=== PATIENT | male | born 1990 | race Caucasian/White ===

== ENCOUNTER 2017-08-07 12:16 | Emergency (ER) | payer MEDICAID, SELFPAY ==
[2017-08-07 12:32] VITALS: BP 142/98; PULSE 79; RESP 18; TEMP 36.6; O2SAT 98
--- NOTE | 2017-08-07 12:42 | CT_ITS ---
CT HEAD/BRAIN WO CON CLINICAL INDICATION: Headache, injury, contusion, laceration following trauma ITS.REASON: HIT IN HEAD WITH AX ORDERING PHYSICIAN: Jn Lynn MD PATIENT AGE: 27 years COMPARISON: None FINDINGS: No midline shift, mass effect, intracranial hemorrhage, or hydrocephalus is evident. No acute calvarial fracture. No intra or extra-axial hemorrhage. IMPRESSION: Negative CT head without contrast.
--- NOTE | 2017-08-07 12:42 | CT_ITS ---
CT FACIAL BONES WO CON CLINICAL INDICATION: Facial injury with pain, injury to the left nasal maxillary region. ITS.REASON: HIT IN HEAD WITH AX ORDERING PHYSICIAN: Jn Lynn MD PATIENT AGE: 27 years COMPARISON: None FINDINGS: No obvious fracture. No sinus air-fluid level. Mild mucosal thickening involves the right maxillary sinus superiorly. There is mild soft tissue swelling along the upper aspect of the nose and nasal maxillary junction. The orbits are unremarkable. IMPRESSION: Soft tissue swelling otherwise negative
--- NOTE | 2017-08-07 12:42 | CT_ITS ---
CT cervical spine wo con CLINICAL INDICATION: Neck pain following injury ITS.REASON: HIT IN HEAD WITH AX ORDERING PHYSICIAN: Jn Lynn MD PATIENT AGE: 27 years COMPARISON: None FINDINGS: Normal alignment. No fracture or dislocation. No prevertebral soft tissue swelling. No lytic or blastic change or significant degenerative change. The lung apices are clear. There is minimal cervical curvature convex left. IMPRESSION: No acute finding
--- NOTE | 2017-08-07 12:42 | HMH.EDWNDL ---
ED Disposition Clinical Impression: Facial laceration Qualifiers: Encounter type: initial encounter Qualified Code(s): S01.81XA - Laceration without foreign body of other part of head, initial encounter Disposition: Home, Self-Care Condition on Discharge: Good Instructions: DI for Closed Head Injury Additional Instructions: 1- hob 30 degree. 2- cold compreses 3- daily neosporin 4- 2 days wound recheck. 6- days stitiches removal. Prescriptions: cephALEXin [cephALEXin 500mg capsule] 500 mg PO QID #28 cap Referrals: Chandrakant Mcwilliams MD [Primary Care Provider] - - Critical Care Critical Care Time: No Attestation: On , the high probability of a clinically significant, sudden or life threatening deterioration of the following system(s) required my full and direct attention, intervention and personal management. The time I documented below is in addition to time spent performing reported procedures but includes the following listed in this critical care notation. Medical Decision Making Vital Signs: 08/07/17 12:32 Temperature 97.8 F Temperature Source Temporal Artery Scan Pulse Rate [Right Brachial] 79 Respiratory Rate 18 Blood Pressure [Right Arm] 142/98 Blood Pressure Source [Right Arm] Automatic Cuff Blood Pressure Position [Right Arm] Sitting 02 Sat by Pulse Oximetry 98 Oxygen Delivery Method Room Air - Will Inquiry Pt receiving controlled substance: No Will was queried for this patient: No Wound/Laceration HPI - General Chief Complaint: Head Injury Stated Complaint: [id number] home ao lac to lip Mode of Arrival: Ambulatory Source of Information: Patient, Spouse Limitations: No Limitations Description of Symptoms (Recalled from ER Triage Doc. by RN): LAC TO FACE. . - History of Present Illness Onset (ago): hour(s) Location: face Place: home Context: accidental Associated symptoms: pain, other (He saw stars, no loss of consciousness. No nausea no warm.) - Related Data Previous Rx's Medication Instructions Recorded cephALEXin [cephALEXin 500mg 500 mg PO QID #28 cap 08/07/17 capsule] Allergies Allergy/AdvReac Type Severity Reaction Status Date / Time No Known Allergies Allergy Unverified 07/24/17 15:16 [facility] History - *Social History Smoking Status: Current every day smoker Alcohol Intake: never - Psychiatric History Expresses thoughts of harming self/others: None Suicide Plan Description: No Plan ROS Obtained: Yes All systems reviewed & no additional complaints except as noted - ENT Reports other (Bleeding from the nose.) Physical Exam - General General appearance: alert, in no apparent distress - Head Head exam: normocephalic, other (Laceration at the base of the nasal septum more to the left, above his moustach. ) - Neck Neck exam: Present: normal inspection, full ROM, trachea midline - Chest Chest inspection: Present: normal inspection, symmetric chest wall rise. Absent: tenderness - Respiratory Respiratory exam: Present: normal lung sounds bilaterally. Absent: respiratory distress - Cardiovascular Cardiovascular exam: Present: regular rate, normal rhythm. Absent: JVD - Abdominal Exam Abdominal exam: Present: soft, normal bowel sounds. Absent: distention, tenderness, guarding - Neurological Exam Neurological exam: Present: alert, oriented X3 - Psychiatric Psychiatric exam: Present: normal affect (2 cm irregular skin laceration at the base of the left nasal septum.), normal mood Procedures - Laceration Laceration 1 Site: face Side (If applicable): left Description: irregular Depth: simple, single layer Local Anesthetic: lidocaine 2% Pre-repair: wound explored Skin layer closed with: nylon Size (cm): 4-0 Technique: simple, interrupted Size: 4-0 - Foreign Body Removal Time Out Performed: No
--- NOTE | 2017-08-07 12:45 | ED_ITS ---
ED Disposition Clinical Impression: Facial laceration Qualifiers: Encounter type: initial encounter Qualified Code(s): S01.81XA - Laceration without foreign body of other part of head, initial encounter Disposition: Home, Self-Care Condition on Discharge: Good Instructions: DI for Closed Head Injury Additional Instructions: 1- hob 30 degree. 2- cold compreses 3- daily neosporin 4- 2 days wound recheck. 6- days stitiches removal. Prescriptions: cephALEXin [cephALEXin 500mg capsule] 500 mg PO QID #28 cap Referrals: Chandrakant Mcwilliams MD [Primary Care Provider] - - Critical Care Critical Care Time: No Attestation: On , the high probability of a clinically significant, sudden or life threatening deterioration of the following system(s) required my full and direct attention, intervention and personal management. The time I documented below is in addition to time spent performing reported procedures but includes the following listed in this critical care notation. Medical Decision Making Vital Signs: 08/07/17 12:32 Temperature 97.8 F Temperature Source Temporal Artery Scan Pulse Rate [Right Brachial] 79 Respiratory Rate 18 Blood Pressure [Right Arm] 142/98 Blood Pressure Source [Right Arm] Automatic Cuff Blood Pressure Position [Right Arm] Sitting 02 Sat by Pulse Oximetry 98 Oxygen Delivery Method Room Air - Will Inquiry Pt receiving controlled substance: No Will was queried for this patient: No Wound/Laceration HPI - General Chief Complaint: Head Injury Stated Complaint: [id number] home ao lac to lip Mode of Arrival: Ambulatory Source of Information: Patient, Spouse Limitations: No Limitations Description of Symptoms (Recalled from ER Triage Doc. by RN): LAC TO FACE. . - History of Present Illness Onset (ago): hour(s) Location: face Place: home Context: accidental Associated symptoms: pain, other (He saw stars, no loss of consciousness. No nausea no warm.) - Related Data Previous Rx's Medication Instructions Recorded cephALEXin [cephALEXin 500mg 500 mg PO QID #28 cap 08/07/17 capsule] Allergies Allergy/AdvReac Type Severity Reaction Status Date / Time No Known Allergies Allergy Unverified 07/24/17 15:16 [facility] History - *Social History Smoking Status: Current every day smoker Alcohol Intake: never - Psychiatric History Expresses thoughts of harming self/others: None Suicide Plan Description: No Plan ROS Obtained: Yes All systems reviewed & no additional complaints except as noted - ENT Reports other (Bleeding from the nose.) Physical Exam - General General appearance: alert, in no apparent distress - Head Head exam: normocephalic, other (Laceration at the base of the nasal septum more to the left, above his moustach. ) - Neck Neck exam: Present: normal inspection, full ROM, trachea midline - Chest Chest inspection: Present: normal inspection, symmetric chest wall rise. Absent : tenderness - Respiratory Respiratory exam: Present: normal lung sounds bilaterally. Absent: respiratory distress - Cardiovascular Cardiovascular exam: Present: regular rate, normal rhythm. Absent: JVD - Abdominal Exam Abdominal exam: Present: soft, normal bowel sounds. Absent: distention, tende
[2017-08-07 14:28] VITALS: BP 121/80; PULSE 78; RESP 16; TEMP 36.6; O2SAT 98
== END 2017-08-07 14:37 | disposition home or self-care (01) ==
PROVIDERS: Emergency Provider Emergency Medicine; Family Provider Internal Medicine Adolescent Medicine; PCP Family Medicine
DX: S01.81XA Laceration without foreign body of other part of head, initial encounter (principal); W22.8XXA Striking against or struck by other objects, initial encounter; Y92.019 Unspecified place in single-family (private) house as the place of occurrence of the external cause
CPT/HCPCS: 12011; 70450; 70486; 72125; 99282

== ENCOUNTER 2020-05-22 10:57 | Emergency (ER) | payer OTHER, SELFPAY ==
[2020-05-22 11:09] VITALS: BP 132/76; PULSE 108; RESP 20; TEMP 36.7; O2SAT 100; BMI 21.3
--- NOTE | 2020-05-22 11:18 | HMH.EDUTC ---
[facility] [place] Clinical Impression: Bronchitis Sinusitis Qualifiers: Sinusitis location: unspecified location Chronicity: unspecified Qualified Code(s): J32.9 - Chronic sinusitis, unspecified Disposition: Home, Self-Care Condition on Discharge: Good Instructions: Sinusitis, Sinus Headache, DI for Sinusitis, Acute Bronchitis Additional Instructions: ? Start antibiotic today. Be sure to complete entire prescription even if feeling better ? Monitor temp. Tylenol every 4 hours as needed and / or ibuprofen every 6 hours as needed ( As long as your primary care physician has told you that it ok to take both. For fever/aches/pains ER if no less than 101 despite Tylenol or Motrin ? Humidifier/vaporizer or hot steamy shower ? Inhaler every 4-6 hours as needed like we discussed. If unsure how to use it, ask pharmacist to demonstrate how. Should help open airways and improve cough, wheezing, and shortness of breath ? Mucinex during the day for your cough and cough suppressant only at night. Be sure to drink lots of water. Insurance may not cover a prescriptions for mucinex. Might be cheaper to get 400mg tablets and take 2 tablet in the morning, mid-day and evening with lots of water. *Start steroid today. Helps with inflammation therefore, cough and wheezing. Follow directions on the package. Reviewed side effects. Patient reports taking them before. Follow up IMMEDIATELY for new or worsening of symptoms OR no noticeable improvement over the next 48-72 hours. 911 immediately for any life threatening symptoms such as chest pain or difficulty breathing You was tested for today for COVID19 your test result should be back in the next 48 hours, you may call back on Sunday to see if your test results are back and the result You was given a handout with instructions for Self Quarantine and Self isolation for while you wait on test results and what to do if they are positive Prescriptions: Albuterol Sulfate [Proventil-HFA 90mcg/puff Inh] 1 - 2 puffs IH Q4HP PRN #1 inh PRN Reason: Shortness Of Breath Transmission Status: Pending to [facility] # predniSONE [Deltasone 10mg tablet] 10 mg PO BID 5 Days #10 tab Transmission Status: Pending to [facility] # guaiFENesin [Mucinex 600mg tablet] 1 tab PO Q12H PRN #10 tab.er.12h PRN Reason: Congestion Transmission Status: Pending to [facility] # Azithromycin [Z-Isaias 250mg Tab] 250 mg PO DIRECTED #6 tab Transmission Status: Pending to [facility] # Referrals: Antwan Graff MD [Primary Care Provider] - As needed Forms: Work/School Release Time of Disposition: 11:25 Medical Decision Making - Will Inquiry Pt receiving controlled substance: No Will was queried for this patient: No Vital Signs: 05/22/20 11:09 Temperature 98.1 F Temperature Source Oral Pulse Rate [Radial] 108 H Respiratory Rate 20 Blood Pressure [Right Arm] 132/76 Blood Pressure Mean [Right Arm] 94 Blood Pressure Source [Right Arm] Automatic Cuff Blood Pressure Position [Right Arm] Sitting 02 Sat by Pulse Oximetry 100 Oxygen Delivery Method Room Air Orders (Tests/Meds): ORDERS Category Date Time Status Covid-19 Nasal PCR Sendout Stat Lab 05/22/20 11:10 Received Medical Decision Narrative: Discussed CXR with patient and he declined at this time [facility] [place] HPI - General Stated complaint: exposed want covid test Time Seen by Provider: 05/22/20 11:18 Mode of Arrival: Ambulatory Source of Information: Patient Limitations: No Limitations Description of Symptoms (Recalled from Triage Doc. by RN): wants covid test, exposed yesterday HEENT Symptoms (Recalled from RN notes): Yes Resp Symptoms (Recalled from RN notes): No Skin Symptoms (Recalled from RN notes): No MS Symptoms (Recalled from RN notes): No Functional Status (Recalled from RN notes): wnl - History of Present Illness Provider Complaint: Patient states that he has been having s
[2020-05-22 11:43] VITALS: BP 132/76; PULSE 108; RESP 20; TEMP 36.7; O2SAT 100
[2020-05-23 08:27] LABS: Covid-19 Nasal PCR Sendout UK Not Detected
== END 2020-05-22 11:44 | disposition home or self-care (01) ==
PROVIDERS: Emergency Provider Nurse Practitioner; PCP Emergency Medicine
DX: Z20.828 Contact with and (suspected) exposure to other viral communicable diseases (principal); J32.9 Chronic sinusitis, unspecified; J20.9 Acute bronchitis, unspecified; F17.210 Nicotine dependence, cigarettes, uncomplicated
CPT/HCPCS: 99201; U0003

== ENCOUNTER 2020-12-14 03:39 | Observation (INO) | payer OTHER, SELFPAY ==
[2020-12-14] VITALS (25 sets, daily range): BP systolic 113–153; BP diastolic 42–97; PULSE 76–104; RESP 12–20; TEMP 36.6–43; O2SAT 95–100; BMI 23.1; BMI 22.0
--- NOTE | 2020-12-14 03:55 | CT_ITS ---
PROCEDURE INFORMATION: Exam: CT Right Upper Extremity With Contrast, Hand Exam date and time: 12/14/2020 3:55 AM Age: 30 years old Clinical indication: Injury or trauma; Other: Possible thorn in 2nd finger; Puncture; Right; Injury date: 12/08/2020; Injury details: PT working on a fence and thinks a thorn went into RT index finger; Patient HX: Infection, swelling and redness RT index finger possible thorn in finger? TECHNIQUE: Imaging protocol: CT of the Right upper extremity with intravenous contrast was performed. Exam focused on the hand. 3D rendering (Not supervised by radiologist): MIP and/or 3D reconstructed images were created by the technologist. Radiation optimization: All CT scans at this facility use at least one of these dose optimization techniques: automated exposure control; mA and/or kV adjustment per patient size (includes targeted exams where dose is matched to clinical indication); or iterative reconstruction. Contrast material: ISOVUE; Contrast volume: 75 ml; Contrast route: IV; COMPARISON: No relevant prior studies available. FINDINGS: Bones/joints: No osteomyelitis is noted. Soft tissues: There is diffuse edema seen throughout the index finger. No obvious radiopaque foreign body is seen. No focal fluid collections are seen the edema is most prominent adjacent to the proximal phalanx. IMPRESSION: Diffuse soft tissue edema in the proximal portion of the index finger, this may represent cellulitis. No definite foreign body identified. No abscess noted.
[2020-12-14 04:13] LABS: Basophils # 0.1 K/mm3 (0-0.2); Basophils % 0.6 % (0.1-2.0); Eosinophils # 0.3 K/mm3 (0.0-0.4); Eosinophils % 2.6 % (0.1-12.0); Hematocrit 50.5 % (42.0-52.0); Hemoglobin 16.3 g/dL (14.1-18.0); Lymphocytes % 8.8 % (10-50); Mean Corpuscular HGB Conc 32.3 g/dL (31.8-35.4); Mean Corpuscular Hemoglobin 31.7 pg (27.0-31.2); Mean Corpuscular Volume 98.3 fl (80-94); Mean Platelet Volume 7.7 fl (7.4-10.4); Monocytes # 0.4 K/mm3 (0.1-1.0); Monocytes % 3.6 % (1.7-9.3); Neutrophils # 9.8 K/mm3 (1.8-7.8); Neutrophils % 84.4 % (37.0-80.0); Platelet Count 186 K/mm3 (142-424); Red Blood Count 5.14 M/mm3 (4.60-6.20); Red Cell Distribution Width 12.8 % (11.5-17.5); White Blood Count 11.6 K/mm3 (4.8-10.8)
[2020-12-14 04:21] LABS: Alanine Aminotransferase 15 U/L (12-78); Albumin Level 3.9 g/dl (3.5-5.0); Albumin/Globulin Ratio 1.6 (1.1-1.8); Alkaline Phosphatase 94 U/L (38-126); Anion Gap 9.1 mEq/L (5-15); Aspartate Amino Transferase 30 U/L (17-59); Bilirubin,Total 0.2 mg/dl (0.2-1.3); Blood Urea Nitrogen 8 mg/dl (9-20); Calcium 8.5 mg/dl (8.4-10.2); Carbon Dioxide 25 mmol/L (22.0-30.0); Chloride 108 mmol/L (98-107); Estimated Glomerular Filt Rate 87 ml/min (>60); GFR (African American) 105 ML/MIN (>60); Globulin 2.5 g/dL (1.3-3.2); Glucose 111 mg/dl (74-100); Potassium 4.1 mmoL/L (3.5-5.1); Sodium 138 mmol/L (136-145); Total Protein,Serum 6.4 g/dl (6.3-8.2)
[2020-12-14 04:26] LABS: C-Reactive Protein 13.5 mg/L (0-4)
[2020-12-14 04:38] LABS: Erythrocyte Sedimentation Rate 1 mm/hr (0-15)
[2020-12-14 04:44] LABS: Lactic Acid 1.2 mmol/L (0.7-2.1)
--- NOTE | 2020-12-14 05:54 | HMH.EDSKAF ---
ED Disposition Clinical Impression: Infection of flexor tendon sheath, SIRS (systemic inflammatory response syndrome) Disposition: Admitted As Inpatient Condition on Discharge: Serious Referrals: Antwan Graff MD [Primary Care Provider] - - Critical Care Critical Care Time: No Attestation: On 12/14/20, the high probability of a clinically significant, sudden or life threatening deterioration of the following system(s) required my full and direct attention, intervention and personal management. The time I documented below is in addition to time spent performing reported procedures but includes the following listed in this critical care notation. Medical Decision Making - Medical Records Medical records reviewed: Yes: I reviewed the patient's medical records. - Will Inquiry Pt receiving controlled substance: No Vital Signs: 12/14/20 03:55 Temperature 98.4 F Temperature Source Oral Pulse Rate [Left] 104 H Respiratory Rate 20 Blood Pressure [Right Arm] 143/78 H Blood Pressure Mean [Right Arm] 99 Blood Pressure Source [Right Arm] Automatic Cuff 02 Sat by Pulse Oximetry 100 Oxygen Delivery Method Room Air - Lab Data Lab results reviewed: Yes: I reviewed the patient's lab results. Lab Results 12/14/20 04:00: WBC 11.6 H, RBC 5.14, Hgb 16.3, Hct 50.5, MCV 98.3 H, MCH 31.7 H, MCHC 32.3, RDW 12.8, Plt Count 186, MPV 7.7, Neut % (Auto) 84.4 H, Lymph % (Auto) 8.8 L, Bee % (Auto) 3.6, Eos % (Auto) 2.6, Baso % (Auto) 0.6, Neut # (Auto) 9.8 H, Lymph # (Auto) 1.0, Bee # (Auto) 0.4, Eos # (Auto) 0.3, Baso # (Auto) 0.1, ESR 1 12/14/20 04:00: Sodium 138, Potassium 4.1, Chloride 108 H, Carbon Dioxide 25, Anion Gap 9.1, BUN 8 L, Creatinine 1.00, Estimated GFR 87, Est GFR ( Amer) 105, Glucose 111 H, Calcium 8.5, Total Bilirubin 0.2, AST 30, ALT 15, Alkaline Phosphatase 94, C-Reactive Protein 13.5 H, Total Protein 6.4, Albumin 3.9, Globulin 2.5, Albumin/Globulin Ratio 1.6 12/14/20 04:00: Procalcitonin 0.060 12/14/20 04:00: Lactate 1.2 Result diagrams: 12/14/20 04:00 12/14/20 04:00 Orders (Tests/Meds): ED MEDICATIONS Generic Name Dose Route Start Last Admin Trade Name Freq PRN Reason Stop Dose Admin Sodium Chloride 1,000 mls @ 999 mls/hr 12/14/20 04:30 12/14/20 04:32 Sod Chlor 0.9% 1000ml Bag IV 12/14/20 05:30 999 mls/hr .Q1H1M ISSA Administration Miscellaneous 1 each 12/14/20 06:15 Vancomycin Consult Request * 01/13/21 06:14 CONSULT PHARMACY ISSA Discontinued Medications Generic Name Dose Route Start Last Admin Trade Name Freq PRN Reason Stop Dose Admin Ketorolac Tromethamine 30 mg 12/14/20 04:26 12/14/20 04:32 Ketorolac 30mg/Ml Vial IV 12/14/20 04:27 30 mg ONCE ONE Administration Methylprednisolone Sodium Succinate 125 mg 12/14/20 04:26 12/14/20 04:32 Methylprednisolone Sod Succ 125mg Vial IV 12/14/20 04:27 125 mg ONCE ONE Administration ORDERS Category Date Time Status Full Resp Panel w/COVID ([facility]) Routine Lab 12/14/20 06:05 Ordered Urinalysis and Microscopic Stat Lab 12/14/20 04:26 Ordered Blood Culture Stat Micro 12/14/20 04:00 Received Wound Culture and Gram Stain Stat Micro 12/14/20 04:26 Ordered - CT Data CT Scan: Other (hand) Time Received: 05:[address] Reviewed: Yes: I have viewed the radiologist's interpretation Preliminary Findings: Abnormal (no abscess) - Physician Consults Physician Consulted: krishna Reason -: Pt condition Medical Decision Narrative: has rt index finger flexor tendon sheath infection Skin/Abscess/FB HPI - General Chief complaint: Wound/Laceration Stated complaint: infected right hand Time Seen by Provider: 12/14/20 04:15 Mode of Arrival: Ambulatory Source of Information: Patient, Significant Other, Medical Record Limitations: No Limitations Description of Symptoms (Recalled from ER Triage Doc. by RN): pt c/o right hand pain, swelling, and decreased ROM to pointer finger. He states 4 da
[2020-12-14 06:25] LABS: Adenovirus,PCR Not Detected (NotDetected); Bordetella Pertussis Not Detected (NotDetected); Chlamydophila Pneumoniae, PCR Not Detected (NotDetected); Coronavirus 19, PCR Not Detected (NotDetected); Coronavirus 229E Not Detected (NotDetected); Coronavirus NL63 Not Detected (NotDetected); Coronavirus OC43 Not Detected (NotDetected); Coronovirus HKU1,PCR Not Detected (NotDetected); Human Metapneumovirus Not Detected (NotDetected); Influenza A, PCR Not Detected (NotDetected); Influenza AH1, 2009 Not Detected (NotDetected); Influenza AH1, PCR Not Detected (NotDetected); Influenza AH3,PCR Not Detected (NotDetected); Influenza B, PCR Not Detected (NotDetected); Mycoplasma Pneumoniae, PCR Not Detected (NotDetected); Parainfluenza 1, PCR Not Detected (NotDetected); Parainfluenza 2, PCR Not Detected (NotDetected); Parainfluenza 3, PCR Not Detected (NotDetected); Parainfluenza 4, PCR Not Detected (NotDetected); Respiratory Syncytial Virus Not Detected (NotDetected); Rhinovirus/Enterovirus Not Detected (NotDetected)
--- NOTE | 2020-12-14 07:35 | HMH.PHAVTE ---
[facility] Pharmacy VTE Monitoring - Patient Demographics Admission date: 12/14/20 Report Date: 12/14/20 Time: 07:35 Allergies/Adverse Reactions: Patient Allergies No Known Allergies Allergy (Unverified 07/24/17 15:16) Height: 1.85 m Weight: 79.379 kg Patient Problems: Current Active Problems Infection of flexor tendon sheath (Acute) SIRS (systemic inflammatory response syndrome) (Acute) - VTE Risk Labs: VTE Related Lab Results Hgb 16.3 g/dL (14.1-18.0) 12/14/20 04:00 Hct 50.5 % (42.0-52.0) 12/14/20 04:00 Plt Count 186 K/mm3 (142-424) 12/14/20 04:00 BUN 8 mg/dl (9-20) L 12/14/20 04:00 Creatinine 1.00 mg/dl (0.66-1.25) 12/14/20 04:00 - Prophylaxis VTE Prophylaxis Ordered?: Yes Types of VTE Prophylaxis: TEDS Knee High Location of Applied Device: Bilateral Lower Extremeties
--- NOTE | 2020-12-14 07:37 | PC.NURSE ---
Dr. Lake at BS
--- NOTE | 2020-12-14 07:37 | PC.NURSE ---
Dr. miranda states she will take pt to surgery toda
--- NOTE | 2020-12-14 08:09 | P.CONPHA_ITS ---
- Pharmacy Consult Date: 12/14/20 Time: 08:09 Referring provider: DR. MILLER Reason for Consult:: VANCOMYCIN DOSING Allergies and ADEs:: Allergies Allergy/AdvReac Type Severity Reaction Status Date / Time No Known Allergies Allergy Unverified 07/24/17 15:16 Home Medications:: Home Medications Medication Instructions Recorded Confirmed Type No Known Home Medications 12/14/20 12/14/20 History Height: 1.85 m Weight: 79.379 kg Laboratory Results:: Laboratory Results - last 24 hr 12/14/20 04:00: WBC 11.6 H, RBC 5.14, Hgb 16.3, Hct 50.5, MCV 98.3 H, MCH 31.7 H , MCHC 32.3, RDW 12.8, Plt Count 186, MPV 7.7, Neut % (Auto) 84.4 H, Lymph % (Auto) 8.8 L, Schuyler % (Auto) 3.6, Eos % (Auto) 2.6, Baso % (Auto) 0.6, Neut # (Auto) 9.8 H, Lymph # (Auto) 1.0, Schuyler # (Auto) 0.4, Eos # (Auto) 0.3, Baso # (Auto) 0.1, ESR 1 12/14/20 04:00: Sodium 138, Potassium 4.1, Chloride 108 H, Carbon Dioxide 25, Anion Gap 9.1, BUN 8 L, Creatinine 1.00, Estimated GFR 87, Est GFR ( Amer) 105, Glucose 111 H, Calcium 8.5, Total Bilirubin 0.2, AST 30, ALT 15, Alkaline Phosphatase 94, C-Reactive Protein 13.5 H, Total Protein 6.4, Albumin 3.9, Globulin 2.5, Albumin/Globulin Ratio 1.6 12/14/20 04:00: Procalcitonin 0.060 12/14/20 04:00: Lactate 1.2 12/14/20 06:20: Chlamy pneumoniae PCR Not detected, Adenovirus (PCR) Not detected, B. pertussis DNA (PCR) Not detected, Coronavirus OC43 (PCR) Not detected, Coronavirus HKU1 (PCR) Not detected, Coronavirus 229E (PCR) Not detected, SARS-CoV-2 (PCR) Not detected, Coronavirus NL63 (PCR) Not detected, Human Metapneumovir PCR Not detected, Influenza A (H1) PCR Not detected, Influ A (H1N1/09) PCR Not detected, Influenza A (H3) PCR Not detected, Influenza Type A (PCR) Not detected, Influenza Type B (PCR) Not detected, M. pneumoniae (PCR) Not detected, Parainfluenza 1 (PCR) Not detected, Parainfluenza 2 (PCR) Not detected, Parainfluenza 3 (PCR) Not detected, Parainfluenza 4 (PCR) Not detected, RSV (PCR) Not detected, Entero/Rhino (PCR) Not detected Medical History: Denies:: Cancer, Diabetes Mellitus Type 1, Diabetes Mellitus Type 2 Assessment and Plan - Assessment and plan all Dx Assessment and Plan for all problems:: Age: 30 yo Serum creatinine: 1 mg/dL Height: 73.0 Inches Weight (kg): 79.4 Assessment: IBW (kg): 79.90 Dosing wt(kg): 79.4 Estimated Creatinine clearance (ml/min): 119.1 CRCL method: Cockcroft and Gault using ibw(default). Drug selected: Vancomycin Loading dose (mg): 0 Vd (liters): 63.5 (factor used: 0.8 L/kg) Sukhjinder (hr-1): 0.103 Half life (hrs): 6.73 Recommended dose: 1750 mg Interval: 12 hrs Infusion time (hrs): 2.0 Predicted peak (mcg/mL): 35.1 Predicted trough (mcg/mL): 12.53 Total body weight is being used for vancomycin dosing. Recommendations: Give Vancomycin 1750 mg q 12 hrs with an expected Cpeak of 35.1 mcg/ml and an expected Ctrough of 12.53 mcg/ml
--- NOTE | 2020-12-14 08:42 | PC.NURSE ---
Surgery packet completed at this time. Consent signed by patient. All clothing besides boxers removed at this time also.
--- NOTE | 2020-12-14 10:21 | PC.NURSE ---
report called to kumar garcia on second floor at this time, states she will send staff down to get pt.
--- NOTE | 2020-12-14 10:21 | PC.NURSE ---
RECIEVED REPORT FROM SHADY JOLLY RN @ [phone].
--- NOTE | 2020-12-14 10:41 | PC.NURSE ---
Pt arrived to the floor at this time
[2020-12-14 11:40] LABS: Microscopic, Urine URINE MICROSCOPIC (MICROSCOPIC)
[2020-12-14 11:42] LABS: Appearance,Urine CLEAR (Clear); Bilirubin,Urine Negative (Negative); Blood, Urine Negative (Negative); Color,Urine YELLOW (Yellow); Glucose,Urine (UA) 1+ (Negative); Ketones,Urine Negative (Negative); Leukocyte Esterase,Urine Negative (Negative); Nitrate,Urine Negative (Negative); PH,Urine 6.5 (5.0-8.5); Protein,Urine Negative (Negative); Urobilinogen,Urine 0.2 EU/dl (0.2)
--- NOTE | 2020-12-14 11:42 | PC.NURSE ---
UNABLE TO OBTAIN WOUND CULTURE. WOUND IS NOT DRAINING, NOR OPEN TO CULTURE WOUND.
--- NOTE | 2020-12-14 12:14 | HMH.ORTHOCON ---
*Admission Date: 12/14/20 *Reason for consult:: R hand infection *History of present illness: 30-year-old gentleman presented to the emergency department this morning for increasing pain and swelling in the right hand. 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 It left a fairly large cut, which he cleansed and covered with skin glue to seal it. He did this because he was about to go fishing and wanted to seal the wound and protect it from the water. 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 Throughout that time he had some swelling and pain but not yet severe. No fevers have been reported. Over the last 24 hours it has dramatically increased in size and has become pink and warm. Motion in the index finger is decreased and hurts with any movement. He has been taking Motrin without relief. No numbness or tingling in the finger. He denies any chronic medical issues or any prescription medications, no known drug allergies. He is a smoker and smokes roughly 1 pack/day; denies illicit drug use or excessive alcohol consumption. He is right-hand dominant. Employed by a local [email or web address] [facility] History I have reviewed the patient's past medical history: Yes Medical History: Denies:: Cancer, Diabetes Mellitus Type 1, Diabetes Mellitus Type 2 *Have you ever received a pneumonia vaccine?: No *Have you received a flu vaccine this season?: No - *Social History Last grade of school completed: 9th or 10th Smoking Status: Current every day smoker Tobacco Type: cigarettes # Packs/Day (cigarettes): 1 Alcohol Intake: never Alcohol Intake Frequency:: a few times a week *Occupational Status:: employed Housing: house Household Members: significant other *Travel in the last 8 weeks: None Family Hx:: No significant family history Review of Systems - Review of Systems Review of systems:: pertinent systems reviewed and negative unless documented below - *Neurologic Denies seizure-like activity Meds Home Medications Medication Instructions Recorded Confirmed Type No Known Home Medications 12/14/20 12/14/20 History Allergies Allergy/AdvReac Type Severity Reaction Status Date / Time No Known Allergies Allergy Unverified 07/24/17 15:16 Exam Vital signs and Labs for Last 24 Hours: Temp Pulse Resp BP Pulse Ox 98.2 F 77 16 122/77 98 12/14/20 11:12 12/14/20 11:12 12/14/20 11:55 12/14/20 11:12 12/14/20 11:12 Laboratory Results - last 24 hr 12/14/20 04:00: WBC 11.6 H, RBC 5.14, Hgb 16.3, Hct 50.5, MCV 98.3 H, MCH 31.7 H, MCHC 32.3, RDW 12.8, Plt Count 186, MPV 7.7, Neut % (Auto) 84.4 H, Lymph % (Auto) 8.8 L, Grayson % (Auto) 3.6, Eos % (Auto) 2.6, Baso % (Auto) 0.6, Neut # (Auto) 9.8 H, Lymph # (Auto) 1.0, Gr[place] # (Auto) 0.4, Eos # (Auto) 0.3, Baso # (Auto) 0.1, ESR 1 12/14/20 04:00: Sodium 138, Potassium 4.1, Chloride 108 H, Carbon Dioxide 25, Anion Gap 9.1, BUN 8 L, Creatinine 1.00, Estimated GFR 87, Est GFR ( Amer) 105, Glucose 111 H, Calcium 8.5, Total Bilirubin 0.2, AST 30, ALT 15, Alkaline Phosphatase 94, C-Reactive Protein 13.5 H, Total Protein 6.4, Albumin 3.9, Globulin 2.5, Albumin/Globulin Ratio 1.6 12/14/20 04:00: Procalcitonin 0.060 12/14/20 04:00: Lactate 1.2 12/14/20 06:20: Chlamy pneumoniae PCR Not detected, Adenovirus (PCR) Not detected, B. pertussis DNA (PCR) Not detected, Coronavirus OC43 (PCR) Not detected, Coronavirus HKU1 (PCR) Not detected, Coronavirus 229E (PCR) Not detected, SARS-CoV-2 (PCR) Not detected, Coronavirus NL63 (PCR) Not detected, Human Metapneumovir PCR Not detected, Influenza A (H1) PCR Not detected, Influ A (H1N1/09) PCR Not detected, Influenza A (H3) PCR Not detected, Influenza Type A (PCR) Not detected, Influenza Type B (PCR) Not detected, M. pneumoniae (PCR) Not detected, Parainfluenza 1 (PCR) Not detected, Parainfluenza 2 (PCR) Not detected, Parainfluenza 3 (PCR) Not d
--- NOTE | 2020-12-14 15:05 | PC.NURSE ---
patient left for or at this time
--- NOTE | 2020-12-14 15:52 | HMH.HP ---
*Admission Date: 12/14/20 *Chief complaint: swollen hand *History of present illness: this patient presented to the ed with progressive swelling rt hand - pt had puncture wd to rt index finger and has progressive swelling and pain rt hand -he was seen in the ed -scription of Symptoms (Recalled from ER Triage Doc. by RN): pt c/o right hand pain, swelling, and decreased ROM to pointer finger. 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 Pt reports that swelling has been present since the 2nd day and progressively got worse. 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 He states the pain was so severe it woke him up about 3am. Pt has been taking motrin without relief. pt with positive kanavels signs and was admitted and will be seen by ortho for surg and treatment [facility] History I have reviewed the patient's past medical history: Yes Medical History: Denies:: Cancer, Diabetes Mellitus Type 1, Diabetes Mellitus Type 2 *Have you ever received a pneumonia vaccine?: No *Have you received a flu vaccine this season?: No - *Social History Last grade of school completed: 9th or 10th Smoking Status: Current every day smoker Tobacco Type: cigarettes # Packs/Day (cigarettes): 1 Alcohol Intake: never Alcohol Intake Frequency:: a few times a week *Occupational Status:: employed Housing: house Household Members: significant other *Travel in the last 8 weeks: None Family Hx:: No significant family history Review of Systems - Review of Systems Review of systems:: pertinent systems reviewed and negative unless documented below - Constitutional Denies fever(s) - Eyes Denies change in vision - ENT Denies sore throat - *Cardiovascular Denies chest pain at rest, Denies shortness of breath - *Respiratory Denies cough - *Gastrointestinal Denies abdominal pain - *Genitourinary Denies blood in urine - *Musculoskeletal Reports joint pain - Integumentary/Breasts Reports other (finger and hand swelling ) - *Neurologic Denies seizure-like activity - Psychiatric Denies depression Meds Home Medications Medication Instructions Recorded Confirmed Type No Known Home Medications 12/14/20 12/14/20 History Allergies Allergy/AdvReac Type Severity Reaction Status Date / Time No Known Allergies Allergy Unverified 07/24/17 15:16 Exam Vital signs and Labs for Last 24 Hours: Temp Pulse Resp BP Pulse Ox 98.1 F 89 18 132/81 98 12/14/20 14:48 12/14/20 14:48 12/14/20 14:48 12/14/20 14:48 12/14/20 14:48 Laboratory Results - last 24 hr 12/14/20 04:00: WBC 11.6 H, RBC 5.14, Hgb 16.3, Hct 50.5, MCV 98.3 H, MCH 31.7 H, MCHC 32.3, RDW 12.8, Plt Count 186, MPV 7.7, Neut % (Auto) 84.4 H, Lymph % (Auto) 8.8 L, Towner % (Auto) 3.6, Eos % (Auto) 2.6, Baso % (Auto) 0.6, Neut # (Auto) 9.8 H, Lymph # (Auto) 1.0, Towner # (Auto) 0.4, Eos # (Auto) 0.3, Baso # (Auto) 0.1, ESR 1 12/14/20 04:00: Sodium 138, Potassium 4.1, Chloride 108 H, Carbon Dioxide 25, Anion Gap 9.1, BUN 8 L, Creatinine 1.00, Estimated GFR 87, Est GFR ( Amer) 105, Glucose 111 H, Calcium 8.5, Total Bilirubin 0.2, AST 30, ALT 15, Alkaline Phosphatase 94, C-Reactive Protein 13.5 H, Total Protein 6.4, Albumin 3.9, Globulin 2.5, Albumin/Globulin Ratio 1.6 12/14/20 04:00: Procalcitonin 0.060 12/14/20 04:00: Lactate 1.2 12/14/20 06:20: Chlamy pneumoniae PCR Not detected, Adenovirus (PCR) Not detected, B. pertussis DNA (PCR) Not detected, Coronavirus OC43 (PCR) Not detected, Coronavirus HKU1 (PCR) Not detected, Coronavirus 229E (PCR) Not detected, SARS-CoV-2 (PCR) Not detected, Coronavirus NL63 (PCR) Not detected, Human Metapneumovir PCR Not detected, Influenza A (H1) PCR Not detected, Influ A (H1N1/09) PCR Not detected, Influenza A (H3) PCR Not detected, Influenza Type A (PCR) Not detected, Influenza Type B (PCR) Not detected, M. pneumoniae (PCR) N
--- NOTE | 2020-12-14 17:08 | P.PN_ITS ---
[facility] Anesthesia Checklist - Structural Data Admitted From: Inpatient Planned Operative Procedure/s: i/d r first finger Consent for Planned Operative Procedure(s) Verified: Yes - Airway Assessment C-Spine Mobility Assessed: Yes TMJ Mobility Assessed: Yes Dentition: Good Dentition - Neurological Assessment Level of Consciousness: Awake, Alert, Appropriate - Anesthesia Plan Anesthesia Risk discussed: Yes Anesthesia Plan: Verified ASA Class: II Anesthesia Type: General [facility] History I have reviewed the patient's past medical history: Yes Medical History: Denies:: Cancer, Diabetes Mellitus Type 1, Diabetes Mellitus Type 2 *Have you ever received a pneumonia vaccine?: No *Have you received a flu vaccine this season?: No Anesthesia experience/problems:: none - *Social History Last grade of school completed: 9th or 10th Smoking Status: Current every day smoker Tobacco Type: cigarettes # Packs/Day (cigarettes): 1 Alcohol Intake: never Alcohol Intake Frequency:: a few times a week Substance Use Type: denies use *Occupational Status:: employed Housing: house Household Members: significant other *Travel in the last 8 weeks: None Family Hx:: No significant family history
--- NOTE | 2020-12-14 17:09 | P.PN_ITS ---
[facility] Anesthesia Record Part I Intake, IV Amount: 1,000 Estimated blood loss (mL): 0 Urine output (mL): 0 Blood Pressure: 138/60 SaO2: 98 Pulse Rate: 84 Respiratory Rate: 12 Temperature: 97.8 F Patient is:: Awake, Stable Stable to PACU at:: 17:00
--- NOTE | 2020-12-14 17:23 | PC.NURSE ---
Received report from RACHELLE LorenzU @ this time
--- NOTE | 2020-12-14 17:29 | HMH.OPNOTE ---
Date of procedure: 12/14/20 Pre-op Diagnosis:: R index finger flexor tenosynovitis Post-op Diagnosis:: R index finger flexor tenosynovitis Procedure performed:: incision and drainage with irrigation, R index finger Surgeon:: Kyra Francis MD Relay Assembler(s):: Devora HVAC LEAD:: Ham Deras Anesthesia: GETA Estimated blood loss (mL): 10 Clinical Note:: 30-year-old gentleman presented to the emergency department this morning for increasing pain and swelling in the right hand. 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 It left a fairly large cut, which he cleansed and covered with skin glue to seal it. He did this because he was about to go fishing and wanted to seal the wound and protect it from the water. 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 Throughout that time he had some swelling and pain but not yet severe. No fevers have been reported. Over the last 24 hours it has dramatically increased in size and has become pink and warm. Motion in the index finger is decreased and hurts with any movement. He has been taking Motrin without relief. No numbness or tingling in the finger. He denies any chronic medical issues or any prescription medications, no known drug allergies. He is a smoker and smokes roughly 1 pack/day; denies illicit drug use or excessive alcohol consumption. He is right-hand dominant. Employed by a local [employer]. On examination he was found to have a wound on the volar aspect of the R index finger over the proximal phalanx and significant swelling/erythema and signs of flexor tenosynovitis. I discussed the nature of the illness with the patient, and that the index finger is in need of surgical debridement, rather urgently. I discussed the risks of surgery with him, including bleeding, continuation/extension of infection, risk of osteomyelitis, post-infectious arthritis if joint involved, risk of post-operative stiffness and residual swelling, and the risks of anesthesia. I also explained the need for this to be done urgently today and for admission afterwards for wound care and IV antibiotics. The patient vocalized understanding and provided informed consent for the procedure. Operative findings:: pus at site of injury, no foreign bodies, no necrotic tissue --> cultures taken x2 Operative note:: The patient was identified in preoperative holding and the R hand signed by myself. Consent was verified with the patient and all questions answered. He was then taken to the operating room where he was transferred to the operative table and the right arm placed on a hand table. IV vancomycin was started in the ER and continued on the floor; new dosing was not given. A non-sterile tourniquet was placed on upper right arm and the right hand was prepped and draped in the usual sterile fashion. Timeout was performed, identifying the correct patient, correct procedure, and correct site. The procedure was begun by elevating the arm for 2 minutes, followed by inflation of the tourniquet to 250mmHg. The arm was not exsanguinated with an esmarch due to the presence of infection. Next a sterile 15 blade was use to incise the volar aspect of the R index finger over the proximal phalanx, opening up the original injury, which was closed over. Immediately pus was encountered, ~3cc. This was swabbed and sent for aerobic and anaerobic cultures. The finger was opened up slightly more to improve visualization and see the entire infected area; a distal limb was made from this wound longitudnally over the lateral/volar border of the proximal phalax, and a proximal limb extending across the flexion crease at the MCP joint. No necrotic tissue was seen and dissection kept volar the the radial/ulnar digital neurovascular bundles, which were not seen. A separate incision was made over the flexion crease at the DIP joint, transversely in the c
--- NOTE | 2020-12-14 19:36 | PC.NURSE ---
patient went off floor @ 19:30.
--- NOTE | 2020-12-14 19:49 | PC.NURSE ---
patient back up to floor.
[2020-12-15 00:15] VITALS: BP 123/65; PULSE 82; RESP 17; TEMP 36.9; O2SAT 98
--- NOTE | 2020-12-15 03:28 | PC.NURSE ---
No acute changes noted this shift. Pt has slept at intervals this shift. Has c/o discomfort to RUE. Describes it as a burning sensation. DSG to RUE is C/D/I. Capillary refill less than 3 seconds. Pt can wiggle fingers. VSS. Has been up to BR. No other concerns. Medications administered per oct. Pt requested this AM to be SL. Call light within reach. Will continue to monitor.
[2020-12-15 04:00] VITALS: BP 126/61; PULSE 73; RESP 16; TEMP 36.7; O2SAT 100
[2020-12-15 05:09] VITALS: BMI 22.4
[2020-12-15 06:35] LABS: Basophils % 0.1 % (0.1-2.0); Eosinophils % 0.1 % (0.1-12.0); Hematocrit 43.8 % (42.0-52.0); Hemoglobin 14.2 g/dL (14.1-18.0); Lymphocytes # 0.8 K/mm3 (0.7-4.5); Lymphocytes % 5.2 % (10-50); Mean Corpuscular HGB Conc 32.4 g/dL (31.8-35.4); Mean Corpuscular Hemoglobin 32.3 pg (27.0-31.2); Mean Corpuscular Volume 99.6 fl (80-94); Monocytes # 0.6 K/mm3 (0.1-1.0); Monocytes % 3.7 % (1.7-9.3); Neutrophils # 14.4 K/mm3 (1.8-7.8); Neutrophils % 90.9 % (37.0-80.0); Platelet Count 168 K/mm3 (142-424); Red Cell Distribution Width 12.9 % (11.5-17.5); White Blood Count 15.8 K/mm3 (4.8-10.8)
[2020-12-15 06:37] LABS: MANUAL DIFFERENTIAL MANUAL DIFFERENTIAL (MANUAL DIFF)
[2020-12-15 07:03] LABS: Anion Gap 6.6 mEq/L (5-15); Blood Urea Nitrogen 8 mg/dl (9-20); Calcium 8.7 mg/dl (8.4-10.2); Carbon Dioxide 26 mmol/L (22.0-30.0); Chloride 108 mmol/L (98-107); Creatinine Clearance Estimated 144 mL/min (50-200); Estimated Glomerular Filt Rate 112 ml/min (>60); GFR (African American) 136 ML/MIN (>60); Glucose 134 mg/dl (74-100); Potassium 4.6 mmoL/L (3.5-5.1); Sodium 136 mmol/L (136-145)
[2020-12-15 07:23] LABS: Lymphocytes % 7 % (10-50); Monocytes % 5 % (2-9); Neutrophils % 88 % (42-76); Total Cells Counted 100
[2020-12-15 07:24] LABS: Platelet Estimate Normal; RBC Morphology Normal
[2020-12-15 08:00] VITALS: BP 130/66; PULSE 91; RESP 18; TEMP 36.7; O2SAT 99
--- NOTE | 2020-12-15 09:13 | HMH.DCSUM ---
General - General Admission date:: 12/14/20 Discharge date: 12/15/20 HPI HPI: this patient presented to the ed with progressive swelling rt hand - pt had puncture wd to rt index finger and has progressive swelling and pain rt hand -he was seen in the ed -scription of Symptoms (Recalled from ER Triage Doc. by RN): pt c/o right hand pain, swelling, and decreased ROM to pointer finger. 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 Pt reports that swelling has been present since the 2nd day and progressively got worse. 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 He states the pain was so severe it woke him up about 3am. Pt has been taking motrin without relief. pt with positive kanavels signs and was admitted and will be seen by ortho for surg and treatment Hospital Course Hospital Course: 30 YOM had puncture wd to rt index finger and has progressive swelling and pain rt hand -he was seen in the ed. He c/o right hand pain, swelling, and decreased ROM to pointer finger. 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 Pt reports that swelling has been present since the 2nd day and progressively got worse. Pt can not completely bend the pointer finger and to attempt causes him 10/10 pain. He states the pain was so severe it woke him up about 3am. Pt has been taking motrin without relief. 12/14/20 incision and drainage with irrigation, R index finger: The procedure was begun by elevating the arm for 2 minutes, followed by inflation of the tourniquet to 250mmHg. The arm was not exsanguinated with an esmarch due to the presence of infection. Next a sterile 15 blade was use to incise the volar aspect of the R index finger over the proximal phalanx, opening up the original injury, which was closed over. Immediately pus was encountered, ~3cc. This was swabbed and sent for aerobic and anaerobic cultures. The finger was opened up slightly more to improve visualization and see the entire infected area; a distal limb was made from this wound longitudnally over the lateral/volar border of the proximal phalax, and a proximal limb extending across the flexion crease at the MCP joint. No necrotic tissue was seen and dissection kept volar the the radial/ulnar digital neurovascular bundles, which were not seen. A separate incision was made over the flexion crease at the DIP joint, transversely in the crease; this was opened up and the distal extent of the flexor tendon sheath exposed. No obvious infection was seen at this site. A 14G angiocath was placed into the flexor tendon sheath proximally and connected to a 20cc syringe of sterile saline, which was used to irrigate the sheath, with fluid exiting out the distal wound. This was continued with serial syringes until ~100cc saline was used to irrigate the flexor tendon sheath. The incisions were closed using 4-0 nylon and simple interrupted sutures. I felt they could be closed due to the lack of gross contamination the flexor tendon sheath. The tourniquet was released at 25 minutes and no significant bleeding seen; hemostasis was obatined with gentle pressure. The incisions were all covered with xeroform, sterile 4x4s and the hand wrapped with pearl wrap, webril and ARNAV wrap. The patient tolerated this procedure well and had no immediate perioperative complications. Ortho has seen and recommends: -- dressing changed today, appearance vastly improved from pre-operatively -- wound care: xeroform over incisions, followed by 4x4 gauze and pearl wrap, then kerlix or webril; finish with ARNAV wrap. Change once daily. -- continue to elevate RUE frequently to decrease swelling -- gentle ROM R hand ok, but otherwise NWB RUE -- recommend discharge on Bactrim DS 1 tab BID x7 days, as well as itrazonazole x 30 days (to treat possible
--- NOTE | 2020-12-15 10:00 | HMH.ORTHPN ---
Subjective Date: 12/15/20 Time: 09:00 Principal diagnosis: R index finger flexor tenosynovitis Interval history: The patient is doing well this morning, reported some pain overnight but this is improved this morning. He has been elevating his hand and has had no fevers or chills overnight, no drainage from his dressings. No numbness or tingling in the fingers. Preliminary Gram stain results show gram-positive topical cocci and gram-positive cocci in clusters. He has been on IV vancomycin since admission. PN: Obj Ex Vital signs: Temp Pulse Resp BP Pulse Ox 98.1 F 91 H 18 130/66 99 12/15/20 08:00 12/15/20 08:00 12/15/20 08:00 12/15/20 08:00 12/15/20 08:00 - Constitutional no acute distress - Routine HEENT Exam Head: Present: normocephalic Eye: Present: EOMI ENT: Present: mucous membranes moist - Routine Neck Exam Present: trachea midline - Routine Respiratory Exam Absent: respiratory distress - Routine Cardiovascular Exam Present: RRR - Routine Abdominal Exam Present: soft. Absent: tenderness - Routine Extremities Exam Comments: R index finger volar incisions x2 c/d/i, sutures intact improved swelling/tenderness from yesterday scant erythema, vastly improved from yesterday AIN/PIN/ulnar nerves motor intact distally RUE SILT distally RUE in m/r/u distributions palpable radial pulse R wrist, fingers pink/warm with BCR - Routine Skin Exam Present: warm - Routine Neurological Exam Present: alert, oriented X3, moving all extremities, normal tone, vision grossly intact, hearing grossly intact, normal speech. Absent: sensory deficit, motor deficit, altered mental status - Routine Psychiatric Exam Present: normal affect Progress Note: A&P (1) Infection of flexor tendon sheath Status: Acute (2) SIRS (systemic inflammatory response syndrome) Status: Acute Assessment and Plan for All Diagnoses:: 30yo M POD 1 s/p I&D R hand for index finger flexor tenosynovitis -- dressing changed today, appearance vastly improved from pre-operatively -- wound care: xeroform over incisions, followed by 4x4 gauze and pearl wrap, then kerlix or webril; finish with ARNAV wrap. Change once daily. -- continue to elevate RUE frequently to decrease swelling -- gentle ROM R hand ok, but otherwise NWB RUE -- recommend discharge on Bactrim DS 1 tab BID x7 days, as well as itrazonazole x 30 days (to treat possible sporotrichosis given onset of wound from thorn injury) -- follow-up with me in clinic 12/20/20 at 9:30am -- will f/u final wound cultures and change/tailor antibiotics pending results and sensitivities
--- NOTE | 2020-12-15 10:23 | P.PN_ITS ---
[facility] Anesthesia Record Part II Discharge Time: 17:21 Destination: Medical Surgical Department PACU nurse assessment reviewed?: Yes Patient Condition:: Good Anesthesia Complications:: None Swallowing reflex intact?: Yes Cyanosis?: No Blood Pressure: 143/97 Pulse Rate: 83 Temperature: 98.3 F Mental Status: Alert & Oriented Pain level:: 6 Nausea and/or vomitting:: None Intake, IV Amount: 0
[2020-12-15 10:24] VITALS: BP 143/97; PULSE 83; TEMP 36.8
[2020-12-15 11:42] VITALS: BP 136/69; PULSE 82; RESP 18; TEMP 37.1; O2SAT 98
[2020-12-15 13:29] LABS: Vancomycin,Trough 8.1 ug/mL (5.0-10.0)
--- NOTE | 2020-12-15 13:33 | P.CONPHA_ITS ---
- Pharmacy Consult Date: 12/15/20 Time: 13:33 Referring provider: DR. MILLER Reason for Consult:: VANCOMYCIN TROUGH LEVEL Allergies and ADEs:: Allergies Allergy/AdvReac Type Severity Reaction Status Date / Time No Known Allergies Allergy Unverified 07/24/17 15:16 Home Medications:: Home Medications Medication Instructions Recorded Confirmed Type Hydrocod/Acet 5/325 mg [[place] 1 tab PO Q6HP PRN #12 tab 12/15/20 Rx 5/325mg tablet] Itraconazole [Sporanox] 300 mg PO DAILY 30 Days #90 cap 12/15/20 Rx Sulfamethoxazole/Trimethoprim 1 each PO BID 7 Days #14 tab 12/15/20 Rx [Bactrim DS tablet] Height: 1.85 m Weight: 76.685 kg Laboratory Results:: Laboratory Results - last 24 hr 12/15/20 05:52: WBC 15.8 H D, RBC 4.40 L, Hgb 14.2, Hct 43.8, MCV 99.6 H, MCH 32.3 H, MCHC 32.4, RDW 12.9, Plt Count 168, MPV 8.0, Neut % (Auto) 90.9 H, Lymph % (Auto) 5.2 L, Morrison % (Auto) 3.7, Eos % (Auto) 0.1, Baso % (Auto) 0.1, Neut # (Auto) 14.4 H, Lymph # (Auto) 0.8, Morrison # (Auto) 0.6, Eos # (Auto) 0.0, Baso # (Auto) 0.0, Total Counted 100, Neutrophils % (Manual) 88 H, Lymphocytes % (Manual) 7 L, Monocytes % (Manual) 5, Platelet Estimate Normal, RBC Morphology Normal 12/15/20 05:52: Sodium 136, Potassium 4.6, Chloride 108 H, Carbon Dioxide 26, Anion Gap 6.6, BUN 8 L, Creatinine 0.80, Estimated Creat Clear 144, Estimated GFR 112, Est GFR ( Amer) 136 D, Glucose 134 H, Calcium 8.7 12/15/20 12:44: Vancomycin Trough 8.1 Medical History: Denies:: Cancer, Diabetes Mellitus Type 1, Diabetes Mellitus Type 2 Assessment and Plan (1) Infection of flexor tendon sheath Status: Acute Category: Medical Code(s): M65.10 - Other infective (teno)synovitis, unspecified site (2) SIRS (systemic inflammatory response syndrome) Status: Acute Category: Medical Code(s): R65.10 - Systemic inflammatory response syndrome (SIRS) of non-infectious origin without acute organ dysfunction - Assessment and plan all Dx Assessment and Plan for all problems:: BASED ON PATIENT FACTORS AND VANCOMYCIN TROUGH LEVEL, RECOMMEND CONTINUING VANCOMYCIN 1750 MG IV Q12H. PATIENT WILL RECEIVE 1 MORE DOSE OF VANCOMYCIN AND WILL BE DISCHARGED ON BACTRIM AND ITRACONAZOLE.
--- NOTE | 2020-12-15 16:06 | PC.NURSE ---
pt given 1 day supply of dressings for right hand (xeroform, soft roll, pearl, 4x4s, and 2 ARNAV bandage).
== END 2020-12-15 16:07 | disposition home or self-care (01) ==
LOC: ER 06:18 → 2ND 11:09
PROVIDERS: Orthopaedic Surgery; Admitting Provider Emergency Medicine; Emergency Provider Emergency Medicine; PCP Emergency Medicine; Visit Provider Emergency Medicine
DX: M65.141 Other infective (teno)synovitis, right hand (principal); F17.210 Nicotine dependence, cigarettes, uncomplicated; B95.62 Methicillin resistant Staphylococcus aureus infection as the cause of diseases classified elsewhere; W26.8XXA Contact with other sharp object(s), not elsewhere classified, initial encounter; Y99.0 Civilian activity done for income or pay
CPT/HCPCS: 26020; 36415; 73201; 80048; 80053; 80202; 81001; 83605; 84145; 85007; 85025; 85651; 86140; 87040; 87070; 87075; 87077; 87186; 87205; 87581; 87633; 87798; 96365; 96375; 99203; G0378; G0463; J2405; J3370

== ENCOUNTER 2021-04-02 12:11 | Emergency (ER) | payer OTHER, SELFPAY ==
[2021-04-02 14:09] VITALS: BP 138/89; PULSE 81; RESP 16; TEMP 36.9; O2SAT 98; BMI 21.7
--- NOTE | 2021-04-02 14:17 | HMH.EDUTC ---
[facility] [place] Disposition Clinical Impression: Viral syndrome, Exposure to COVID-19 virus Disposition: Home, Self-Care Condition on Discharge: Good Instructions: DI for COVID-19 (Suspected or Confirmed ), Preventing the Spread of Coronavirus Discharge Instructions Additional Instructions: Drink plenty of fluids. Take tylenol or ibuprofen for pain or fever. Take the medications as directed. Follow up with your regular doctor. GO TO THE ER FOR ANY WORSENING SYMPTOMS Quarantine until you know the results of your covid-19 test. If it is positive, the health department should call you and give you further instructions about your length of Quarantine and other things. Notify your school or workplace of your results and follow their instructions regarding return to work/school. Prescriptions: Benzonatate [Tessalon Perle 100mg Cap] 100 mg PO TIDP PRN #30 cap PRN Reason: Cough Transmission Status: Received by [facility] Azithromycin [Z-Isaias 250mg Tab*] 250 mg PO UD DOSE PK #6 tab Transmission Status: Received by [facility] Referrals: Antwan Graff MD [Primary Care Provider] - Time of Disposition: 14:20 Medical Decision Making - Medical Records Medical records reviewed: No: I reviewed the patient's medical records. - Will Inquiry Pt receiving controlled substance: No Vital Signs: 04/02/21 14:09 04/02/21 14:54 Temperature 98.4 F 98.4 F Temperature Source Oral Pulse Rate 81 Pulse Rate [Left] 81 Respiratory Rate 16 18 Blood Pressure 139/87 Blood Pressure [Right Arm] 138/89 Blood Pressure Mean [Right Arm] 105 02 Sat by Pulse Oximetry 98 [facility] [place] HPI - General Stated complaint: COUGH, RUNNY NOSE Time Seen by Provider: 04/02/21 14:17 Mode of Arrival: Ambulatory Source of Information: Patient Limitations: No Limitations Description of Symptoms (Recalled from Triage Doc. by RN): PT C/O A RUNNY NOSE HEENT Symptoms (Recalled from RN notes): Yes (RUNNY NOSE) Resp Symptoms (Recalled from RN notes): No Skin Symptoms (Recalled from RN notes): No MS Symptoms (Recalled from RN notes): No Functional Status (Recalled from RN notes): NA - History of Present Illness Provider Complaint: He is here with complaints of runny nose and cough on and off for the past 1 month. He denies any known covid-19 exposure. He denies any fever/chills/body aches. He would like to be checked so he won't give covid to his parents. - Related Data Previous Rx's Medication Instructions Recorded Azithromycin [Z-Isaias 250mg Tab*] 250 mg PO UD DOSE PK #6 tab 04/02/21 Benzonatate [Tessalon Perle 100mg 100 mg PO TIDP PRN #30 cap 04/02/21 Cap] Allergies Allergy/AdvReac Type Severity Reaction Status Date / Time No Known Allergies Allergy Verified 12/27/20 10:09 - Worker's Comp Is this a Worker's Comp case?: No [facility] History - Hepatitis A Screen Drug use history?: No High risk sexual behaviors?: No History of sexually transmitted infection?: No Currently employed?: No Childcare worker?: No Do you have indoor plumbing?: Yes Do you have electricity?: Yes Attestation statement:: This patient has been screened for Hepatitis A risk factors. I have reviewed the patient's past medical history: Yes Medical History: Denies:: Cancer, Diabetes Mellitus Type 1, Diabetes Mellitus Type 2 Laterality Cases: Left: Other Other Surgeries: Yes: Other - Social History Smoking Status: Current every day smoker Tobacco Type: cigarettes # Packs/Day (cigarettes): 1 Alcohol Intake: never Alcohol Intake Frequency:: a few times a week Substance Use Type: denies use Occupational Status: unemployed Housing: house Household Members: significant other Family Hx:: No significant family history ROS Obtained: Yes All systems reviewed & no additional complaints - Constitutional Constitutional: Reports system reviewed and no additional complaints, except as docu - Eyes Eyes: Reports system reviewed and no
[2021-04-02 14:54] VITALS: BP 139/87; PULSE 81; RESP 18; TEMP 36.9
== END 2021-04-02 15:02 | disposition home or self-care (01) ==
PROVIDERS: Emergency Provider Nurse Practitioner Family; PCP Emergency Medicine
DX: B34.9 Viral infection, unspecified (principal); Z20.822 Contact with and (suspected) exposure to COVID-19; F17.210 Nicotine dependence, cigarettes, uncomplicated
CPT/HCPCS: 99202; G0463; U0003

== ENCOUNTER 2022-02-13 20:57 | Emergency (ER) | payer OTHER, SELFPAY ==
[2022-02-13 20:59] VITALS: BP 135/88; PULSE 82; RESP 19; TEMP 36.9; O2SAT 99; BMI 21.7
[2022-02-13 22:23] VITALS: BP 135/88; PULSE 80; O2SAT 99
[2022-02-13 22:30] VITALS: BP 117/81; PULSE 84; O2SAT 99
[2022-02-13 22:32] VITALS: BP 115/81; PULSE 84; O2SAT 100
--- NOTE | 2022-02-13 22:38 | XR_ITS ---
PROCEDURE INFORMATION: Exam: XR Chest Exam date and time: 02/13/2022 10:39 PM Age: 31 years old Clinical indication: Other: Ble edema; Additional info: Pitting edema ble; Denies any chest pain or SOA TECHNIQUE: Imaging protocol: Radiologic exam of the chest. Views: 2 views. COMPARISON: [facility] CT cervical spine wo con 08/07/2017 12:52 PM FINDINGS: Lungs: Normal pulmonary expansion. Pulmonary vasculature grossly normal. No gross pulmonary infiltrates or edema pattern. Pleural spaces: No pleural effusion. No pneumothorax. Heart/Mediastinum: Heart size normal. No tracheal/mediastinal shift. Diaphragm: Mild elevation of the left hemidiaphragm. Mild eventration of the right hemidiaphragm. Bones/joints: No acute osseous abnormalities are identified. IMPRESSION: No acute thoracic process.
--- NOTE | 2022-02-13 22:41 | ECG_ITS ---
APPROVED REPORT Exam: Resting ECG HR:71 bpm ECG Measurements Heart Rate 71 AXES ME 93 P 23 QRSd 72 QRS 77 QT 368 T 59 QTc 391 Conclusion SINUS RHYTHM WITH SHORT ME INTERVAL BORDERLINE ECG UNCONFIRMED REPORT Electronically signed by : Chandrakant Phelps MD 02/15/2022 17:58:54
[2022-02-13 22:45] LABS: Basophils # 0.1 K/mm3 (0-0.2); Basophils % 2.9 % (0.1-2.0); Eosinophils # 0.2 K/mm3 (0.0-0.4); Eosinophils % 3.5 % (0.1-12.0); Hematocrit 41.6 % (42.0-52.0); Lymphocytes # 1.4 K/mm3 (0.7-4.5); Lymphocytes % 31.9 % (10-50); Mean Corpuscular HGB Conc 31.3 g/dL (31.8-35.4); Mean Corpuscular Hemoglobin 34.2 pg (27.0-31.2); Mean Corpuscular Volume 109.3 fl (80-94); Mean Platelet Volume 9.4 fl (7.4-10.4); Monocytes # 0.2 K/mm3 (0.1-1.0); Monocytes % 4.2 % (1.7-9.3); Neutrophils # 2.5 K/mm3 (1.8-7.8); Neutrophils % 57.5 % (37.0-80.0); Platelet Count 155 K/mm3 (142-424); Red Blood Count 3.81 M/mm3 (4.60-6.20); White Blood Count 4.3 K/mm3 (4.8-10.8)
[2022-02-13 22:57] LABS: Alanine Aminotransferase 70 U/L (12-78); Albumin Level 2.2 g/dl (3.5-5.0); Albumin/Globulin Ratio 0.9 (1.1-1.8); Alkaline Phosphatase 332 U/L (38-126); Anion Gap 5.8 mEq/L (5-15); Aspartate Amino Transferase 124 U/L (17-59); Bilirubin,Total 1.5 mg/dl (0.2-1.3); Blood Urea Nitrogen 9 mg/dl (9-20); Calcium 7.7 mg/dl (8.4-10.2); Carbon Dioxide 27 mmol/L (22.0-30.0); Chloride 107 mmol/L (98-107); Creatinine Clearance Estimated 124 mL/min (50-200); Estimated Glomerular Filt Rate 97 ml/min (>60); GFR (African American) 118 ML/MIN (>60); Globulin 2.5 g/dL (1.3-3.2); Glucose 105 mg/dl (74-100); Potassium 3.8 mmoL/L (3.5-5.1); Sodium 136 mmol/L (136-145); Total Protein,Serum 4.7 g/dl (6.3-8.2)
[2022-02-13 23:00] VITALS: BP 112/68; PULSE 73; O2SAT 98
[2022-02-13 23:02] LABS: C-Reactive Protein 1.1 mg/L (0-4)
[2022-02-13 23:11] LABS: NT Pro Brain Natriuretic Pep. 254 pg/mL (0-125)
[2022-02-13 23:16] LABS: Procalcitonin 1.09 ng/mL (0.0-2.0)
[2022-02-13 23:21] LABS: Troponin I < 0.01 ng/ml (0.00-0.034)
[2022-02-13 23:30] VITALS: BP 114/73; PULSE 70; O2SAT 97
[2022-02-13 23:38] LABS: Erythrocyte Sedimentation Rate 1 mm/hr (0-15)
--- NOTE | 2022-02-13 23:53 | HMH.EDEXTP ---
ED Disposition Clinical Impression: Lower extremity edema, Elevated d-dimer Ascites Qualifiers: Ascites type: due to alcoholic cirrhosis Qualified Code(s): K70.31 - Alcoholic cirrhosis of liver with ascites Disposition: Home, Self-Care Condition on Discharge: Fair Instructions: DI for Ascites Additional Instructions: see pcp at 1 pm today Referrals: Antwan Graff MD [Primary Care Provider] - - Critical Care Critical Care Time: No Attestation: On 02/13/22, the high probability of a clinically significant, sudden or life threatening deterioration of the following system(s) required my full and direct attention, intervention and personal management. The time I documented below is in addition to time spent performing reported procedures but includes the following listed in this critical care notation. Medical Decision Making - Medical Records Medical records reviewed: Yes: I reviewed the patient's medical records. - Will Inquiry Pt receiving controlled substance: No Vital Signs: 02/13/22 20:59 02/13/22 22:23 02/13/22 22:30 Temperature 98.5 F Temperature Source Oral Pulse Rate 80 84 Pulse Rate [Right] 82 Respiratory Rate 19 Blood Pressure 135/88 117/81 Blood Pressure [Right Arm] 135/88 Blood Pressure Mean 102 93 Blood Pressure Mean [Right Arm] 103 Blood Pressure Source [Right Arm] Automatic Cuff 02 Sat by Pulse Oximetry 99 99 99 Oxygen Delivery Method Room Air 02/13/22 22:32 02/13/22 23:00 02/13/22 23:30 Temperature Temperature Source Pulse Rate 84 73 70 Pulse Rate [Right] Respiratory Rate Blood Pressure 115/81 112/68 114/73 Blood Pressure [Right Arm] Blood Pressure Mean 89 82 84 Blood Pressure Mean [Right Arm] Blood Pressure Source [Right Arm] 02 Sat by Pulse Oximetry 100 98 97 Oxygen Delivery Method 02/14/22 00:00 Temperature Temperature Source Pulse Rate 76 Pulse Rate [Right] Respiratory Rate Blood Pressure 116/79 Blood Pressure [Right Arm] Blood Pressure Mean 91 Blood Pressure Mean [Right Arm] Blood Pressure Source [Right Arm] 02 Sat by Pulse Oximetry 99 Oxygen Delivery Method - Lab Data Lab results reviewed: Yes: I reviewed the patient's lab results. Lab Results 02/13/22 22:35: WBC 4.3 L, RBC 3.81 L, Hgb 13.0 L, Hct 41.6 L, MCV 109.3 H, MCH 34.2 H, MCHC 31.3 L, RDW 19.0 H, Plt Count 155, MPV 9.4, Neut % (Auto) 57.5, Lymph % (Auto) 31.9, [place] % (Auto) 4.2, Eos % (Auto) 3.5, Baso % (Auto) 2.9 H, Neut # (Auto) 2.5, Lymph # (Auto) 1.4, [place] # (Auto) 0.2, Eos # (Auto) 0.2, Baso # (Auto) 0.1, ESR 1 02/13/22 22:35: Sodium 136, Potassium 3.8, Chloride 107, Carbon Dioxide 27, Anion Gap 5.8, BUN 9, Creatinine 0.90, Estimated Creat Clear 124, Estimated GFR 97, Est GFR ( Amer) 118, Glucose 105 H, Calcium 7.7 L, Total Bilirubin 1.5 H, AST 124 H, ALT 70, Alkaline Phosphatase 332 H, Troponin I < 0.01, C-Reactive Protein 1.1, NT-Pro-B Natriuret Pep 254 H, Total Protein 4.7 L D, Albumin 2.2 L, Globulin 2.5, Albumin/Globulin Ratio 0.9 L, Procalcitonin 1.09 02/13/22 22:35: D-Dimer 1.66 H 02/13/22 22:35: Troponin I < 0.01, TSH 2.16, Thyroxine (T4) 5.3 L 02/13/22 22:45: Amylase 39, Lipase 97 02/14/22 00:00: PT 11.1, INR 0.98 02/14/22 00:21: Urine Color Yellow, Urine Appearance Clear, Urine pH 6.0, Ur Specific [place] 1.025, Urine Protein Negative, Urine Glucose (UA) Negative, Urine Ketones Negative, Urine Blood Negative, Urine Nitrate Negative, Urine Bilirubin 2+ A, Urine Urobilinogen 1.0, Ur Leukocyte Esterase Negative, Urine RBC 5-10, Urine WBC 3-5, Ur Squamous Epith Cells 3-5, Calcium Oxalate Crystal 1+, Urine Bacteria 2+ 02/14/22 00:45: Ammonia < 9 L Result diagrams: 02/13/22 22:35 02/13/22 22:35 Orders (Tests/Meds): ED MEDICATIONS Generic Name Dose Route Start Last Admin Trade Name Freq PRN Reason Stop Dose Admin Sodium Chloride 1,000 mls @ 999 mls/hr 02/13/22 22:45 02/13/22 23:00 Sod Chlor 0.9% 1000ml Bag IV
[2022-02-14] VITALS: BP 116/79; PULSE 76; O2SAT 99
--- NOTE | 2022-02-14 | CT_ITS ---
PROCEDURE INFORMATION: Exam: CT Abdomen And Pelvis Without Contrast Exam date and time: 02/14/2022 12:19 AM Age: 31 years old Clinical indication: Abnormal findings; Abnormal lab test; Elevated liver enzymes TECHNIQUE: Imaging protocol: Computed tomography of the abdomen and pelvis without contrast. Radiation optimization: All CT scans at this facility use at least one of these dose optimization techniques: automated exposure control; mA and/or kV adjustment per patient size (includes targeted exams where dose is matched to clinical indication); or iterative reconstruction. COMPARISON: CR XR CHEST 2V 02/13/2022 10:39 PM FINDINGS: Lungs: Mild lingular atelectasis. Trace left basilar pleural effusion. Heart: Heart size normal. Mediastinal space: The visualized distal esophagus is largely contracted without gross abnormality. Diaphragm: Elevated left hemidiaphragm again noted. Liver: Hepatomegaly measuring 22.5 cm craniocaudal. Normal contour. No mass lesions. No intrahepatic biliary ductal dilatation. Gallbladder and bile ducts: The gallbladder is largely contracted. Question mildly heterogeneous content, possibly sludge or small stones. Question mild wall thickening although this may relate to contracted status. There is a small amount of pericholecystic edema and stranding which may relate to the more generalized peritoneal fluid, however correlate clinically for cholecystitis. Consider sonographic assessment as clinically indicated. Pancreas: Stranding around the pancreatic head and body may relate to more generalized changes of anasarca although cannot exclude pancreatitis, correlate with lipase. No pancreatic ductal dilatation. Spleen: Normal. No splenomegaly. Adrenal glands: Normal. No adrenal mass. Kidneys and ureters: Slight bilateral renal caliectasis/pelviectasis which is probably related to moderate urinary bladder distension. No urolithiasis. Kidneys otherwise unremarkable. Stomach and bowel: The stomach demonstrates moderate wall/fold thickening which is most notable in the fundus, with mild stranding of the adjacent fat. This suggests changes of gastritis. No gross gastric ulcer is identified. No evidence of gastric obstruction or perforation. Question mild wall thickening in the duodenum as well suspicious for an element of duodenitis. The small bowel is nondilated with no gross abnormality. Mild wall thickening in the proximal and distal colon. The distal colon is largely contracted. Appendix: The appendix is normal in caliber and demonstrates no evidence of appendicitis. Intraperitoneal space: Moderate peritoneal fluid/ascites which is predominantly intrapelvic with smaller amounts in the perihepatic and perisplenic distribution, and tracking in the right lateral paracolic gutter. No loculated components. No peritoneal free air. Vasculature: No acute process. No abdominal aortic aneurysm. Lymph nodes: No adenopathy. Urinary bladder: The urinary bladder is moderately distended but otherwise unremarkable. Reproductive: Unremarkable as visualized. Bones/joints: No acute osseous abnormalities. Soft tissues: Moderate soft tissue stranding/edema in the peripheral subcutaneous tissues suggesting volume overload or anasarca. IMPRESSION: 1. Hepatomegaly. No focal mass lesions or intrahepatic biliary dilatation. 2. The gallbladder is largely contracted. Question mildly complex internal content which may represent sludge or small stones. Mild wall thickening and adjacent stranding/fluid may relate to generalized anasarca although correlate clinically for cholecystitis. 3. Mild stranding around the pancreatic head through body
[2022-02-14 00:25] LABS: Microscopic, Urine URINE MICROSCOPIC (MICROSCOPIC)
[2022-02-14 00:26] LABS: Appearance,Urine CLEAR (Clear); Blood, Urine Negative (Negative); Color,Urine YELLOW (Yellow); Glucose,Urine (UA) Negative (Negative); Ketones,Urine Negative (Negative); Leukocyte Esterase,Urine Negative (Negative); Nitrate,Urine Negative (Negative); Protein,Urine Negative (Negative); Specific Gravity, Urine 1.025 (1.005-1.030)
[2022-02-14 00:30] LABS: D-Dimer 1.66 ug/mL (0.0-0.5)
[2022-02-14 00:35] LABS: Bilirubin,Urine 2+ (Negative)
[2022-02-14 00:40] LABS: Troponin I < 0.01 ng/ml (0.00-0.034)
[2022-02-14 00:44] LABS: T4 (Thyroxine) 5.3 ug/dl (5.53-11.0)
[2022-02-14 00:54] LABS: Bacteria,Urine 2+ /lpf
[2022-02-14 00:55] LABS: Calcium Oxalate Crystals,Urine 1+ /lpf
[2022-02-14 00:57] LABS: Thyroid Stimulating Hormone 2.16 uIU/mL (0.465-4.68)
[2022-02-14 01:06] LABS: Ammonia < 9 umol/L (9-30)
[2022-02-14 01:12] LABS: INR 0.98 (0.9-1.1); Prothrombin Time 11.1 seconds (10.1-12.5)
[2022-02-14 01:20] LABS: Amylase 39 U/L (30-110); Lipase 97 U/L (23-300)
[2022-02-14 02:53] VITALS: BP 116/79; PULSE 75; RESP 18; TEMP 36.9; O2SAT 99
[2022-02-16 03:28] LABS: Peripheral Smear Review Scanned Result
[2022-02-24 22:21] LABS: Hep A Ab, IgM NEGATIVE; Hepatitis B Core Antibody IgM NEGATIVE; Hepatitis B Surface Antigen NEGATIVE; Hepatitis C Antibody 0.2
== END 2022-02-14 03:00 | disposition home or self-care (01) ==
PROVIDERS: Emergency Provider Emergency Medicine; PCP Emergency Medicine
DX: R60.0 Localized edema (principal); R79.1 Abnormal coagulation profile; K70.31 Alcoholic cirrhosis of liver with ascites; Z72.0 Tobacco use
CPT/HCPCS: 71046; 74176; 80053; 80074; 81001; 82140; 82150; 83690; 83880; 84145; 84436; 84443; 84484; 85025; 85378; 85610; 85651; 86140; 87086; 93005; 96365; 96375; 99285

== ENCOUNTER → 2022-02-14 14:50 | Outpatient (CLI) | payer OTHER, SELFPAY ==
--- NOTE | 2022-02-14 14:53 | CA_ITS ---
FINAL REPORT TECHNIQUE: Bilateral lower extremity venous duplex was performed with augmentation and compression. CLINICAL HISTORY: pain swelling, Pitting edema, ETOH use abn LFT's FINDINGS: Proper flow is seen throughout the deep venous systems bilaterally. There is no evidence of deep venous thrombosis. IMPRESSION: No evidence of deep venous thrombosis. Reviewed, Interpreted and Dictated by Patrick Whitman MD Transcribed by Vinh Moran Authenticated and [facility]
== END ==
PROVIDERS: PCP Emergency Medicine; Visit Provider Emergency Medicine
DX: R60.0 Localized edema (principal); R79.89 Other specified abnormal findings of blood chemistry
CPT/HCPCS: 93970

== ENCOUNTER 2023-08-02 09:37 | Emergency (ER) | payer SELFPAY ==
[2023-08-02 10:00] VITALS: BP 117/78; PULSE 91; RESP 19; TEMP 37.1; O2SAT 98; BMI 22.9
[2023-08-02 10:19] LABS: UTC Influenza A Antigen Positive (Negative); UTC Influenza B Antigen Negative (Negative)
[2023-08-02 10:20] VITALS: BP 117/78; PULSE 91; RESP 19; TEMP 37.1; O2SAT 98
--- NOTE | 2023-08-02 10:21 | ED_ITS ---
Discharge Plan Disposition Patient Disposition: Home, Self-Care Condition: Good Prescriptions Prescriptions: No Action No Known Home Medications Referrals Follow up/Referrals: Provider,Referral, MD [Primary Care Provider] - See instructions Activity Restrictions/Add. Instructions Additional Instructions/Restrictions: * Too late to start Tamiflu. Most effective when started within 48 hours of symptoms onset * Lots of rest * Increase Fluids water, Gatorade, powerade, pedialyte,if infant/toddler/child * Alternate Tylenol and / or ibuprofen as discussed for fever, aches, chills Follow up IMMEDIATELY with your family doctor for new or worsening Symptoms OR no noticeable improvement over the next 48-72 hours, 911 for difficulty or breathing * You or your child area contagious until no fever, aches, chills for 24 hours with medication for symptoms * Help Prevent the spread of influenza: * ?Wash your hands often. Use soap and water. Wash your hands after you use the bathroom, change a child's diapers, or sneeze. Wash your hands before you prepare or eat food. Use gel hand cleanser that has 60% alcohol, when soap and water are not available. Do not touch your eyes, nose, or mouth unless you have washed your hands first. * Cover your mouth when you sneeze or cough. Cough into a tissue or the bend of your arm. If you use a tissue, throw it away immediately and wash your hands. * Clean shared items with a germ-killing smoking pipes cleaner. Clean table surfaces, doorknobs, and light switches. Do not share towels, silverware, and dishes with people who are sick. Wash bed sheets, towels, silverware, and dishes with soap and water. * Wear a mask over your mouth and nose if you are sick. The face mask may help protect others from becoming infected with the flu. Wear the mask when in common areas of your home or if you seek care with a healthcare provider. * Stay away from others if you are sick. Stay at home until 24 hours after your fever and symptoms are gone. Clinical Impressions Clinical Impression: Influenza Stand Alone Forms Stand Alone Forms: Work/School Release Instructions Patient Instructions: DI for Influenza -- Adult Discharge ED Provider: Breana Higuera [facility] General Stated complaint: cough, chills, body aches Mode of Arrival: Ambulatory Source of Information: Patient Limitations: No Limitations Time Seen by Provider: 08/02/23 10:22 Description of Symptoms (Recalled from Triage Doc. by RN): PATIENT C/O BODY ACHES, COUGH, AND RUNNY NOSE X 3 DAYS HEENT Symptoms (Recalled from RN notes): Yes Resp Symptoms (Recalled from RN notes): Yes Skin Symptoms (Recalled from RN notes): No MS Symptoms (Recalled from RN notes): No Functional Status (Recalled from RN notes): WNL History of Present Illness Provider Complaint: Patient states that for the last 3 days he has been having fever, chills, body aches and runny nose states that last night he was up and down with the body aches and today was unable to go to work so he came in to get checked Related Data Home Medications Medication Instructions Recorded Confirmed No Known Home Medications 05/19/22 05/19/22 Allergies Allergy/AdvReac Type Severity Reaction Status Date / Time No Known Allergies Allergy Verified 05/19/22 14:16 Worker's Comp Is this a Worker's Comp case?: No [facility] Disclaimer: The information contained in this section may have been updated after the patient was seen, as this information can be updated by other users. 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 ROS Obtained: Yes All systems reviewed & no additional complaints except as documented and Yes Systems reviewed as appropriate & no additional complaints except as documented Constitutional Constitutional: Reports system reviewed and no additional complaints, except as documented, Reports as per HPI, Reports body ache, Reports chills and Reports fever(s) ENT Ears, Nose, Mouth, and Throat: Reports system reviewed and no additional complaints, except as documented, Reports as per HPI, Reports nasal congestion and Reports nasal discharge Cardiovascular Cardiovascular: Reports system reviewed and no additional complaints, except as documented and Reports as per HPI Respiratory Respiratory: Reports system reviewed and no additional complaints, except as documented and Reports as per HPI Gastrointestinal Gastrointestingal: Reports system reviewed and no additional complaints, except as documented and as per HPI Musculoskeletal Musculoskeletal: Reports system reviewed and no additional complaints, except as documented and Reports as per HPI Physical Exam General General appearance: alert and in no apparent distress ENT ENT exam: Present mucous membranes moist Expanded ENT Exam Nose exam: Present other (clear drainage) Throat exam: Present normal inspection Respiratory Respiratory exam: Present normal lung sounds bilaterally; Absent respiratory distress or wheezes Cardiovascular Cardiovascular exam: Present regular rate, normal rhythm and normal heart sounds Abdominal Exam Abdominal exam: Present soft and normal bowel sounds; Absent distention or tenderness Neurological Exam Neurological exam: Present alert, oriented X3 and normal gait Medical Decision Making Will Inquiry Pt receiving controlled substance: No Will was queried for this patient: No Vital Signs: 08/02/23 10:00 08/02/23 10:20 Temperature 98.7 F 98.7 F Temperature Source Oral Pulse Rate 91 H Pulse Rate [Left Brachial] 91 H Respiratory Rate 19 19 Blood Pressure 117/78 Blood Pressure [Left Arm] 117/78 Blood Pressure Mean [Left Arm] 91 Blood Pressure Source [Left Arm] Automatic Cuff Blood Pressure Position [Left Arm] Sitting 02 Sat by Pulse Oximetry 98 Oxygen Delivery Method Room Air Lab Data Lab results reviewed: Yes I reviewed the patient's lab results. Lab Results 08/02/23 10:19: Influenza Type A Ag Positive A, Influenza Type B Ag Negative
== END 2023-08-02 10:34 | disposition home or self-care (01) ==
PROVIDERS: Emergency Provider Nurse Practitioner
DX: J10.1 Influenza due to other identified influenza virus with other respiratory manifestations (principal); R05.9 Cough, unspecified; R50.9 Fever, unspecified; R09.81 Nasal congestion; M79.18 Myalgia, other site; F17.210 Nicotine dependence, cigarettes, uncomplicated
CPT/HCPCS: 87804; 99212; 99214; G0463

== ENCOUNTER 2024-04-23 21:23 | Emergency (ER) | payer SELFPAY ==
[2024-04-23 21:29] VITALS: BP 126/83; PULSE 79; RESP 16; TEMP 36.5; O2SAT 98; BMI 21.3
--- NOTE | 2024-04-23 21:50 | PC.NURSE ---
right hand irritation noted. aware
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
[2024-04-23 22:05] VITALS: BP 125/81; PULSE 70; RESP 15; TEMP 36.8; O2SAT 98
== END 2024-04-23 22:05 ==
PROVIDERS: Emergency Provider Emergency Medicine; PCP Internal Medicine
DX: S50.812A Abrasion of left forearm, initial encounter (principal); V47.5XXA Car driver injured in collision with fixed or stationary object in traffic accident, initial encounter
CPT/HCPCS: 99284